=== PATIENT | male | born 2000 | race Caucasian/White ===

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

== ENCOUNTER 2018-01-25 17:59 | Emergency (ER) | payer OTHER ==
[2018-01-25 19:20] VITALS: BP 119/70
[2018-01-25] MEDS ORDERED: Ibuprofen ADULT LIQ* 600 MG/30 ML UDC PO ONE (20:41)
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
== END 2018-01-25 20:55 | disposition home or self-care (01) ==
LOC: UCCORT 17:59
DX: M62.838 Other muscle spasm (principal); L55.9 Sunburn, unspecified
CPT/HCPCS: 99212; A9270-GY; G0463

== ENCOUNTER 2018-10-06 19:59 | Emergency (ER) | payer OTHER ==
[2018-10-06 20:41] VITALS: BP 125/76
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
== END 2018-10-06 21:12 | disposition home or self-care (01) ==
LOC: UCCORT 19:59
DX: J03.90 Acute tonsillitis, unspecified (principal)
CPT/HCPCS: 87651; 99212; G0463

== ENCOUNTER 2018-11-01 18:26 | Emergency (ER) | payer OTHER ==
[2018-11-01 19:34] VITALS: BP 119/76
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
[2018-11-01] MEDS ORDERED: Amoxicillin/Clavulanate TAB* 875 MG PO ONE (20:34)
== END 2018-11-01 20:37 | disposition home or self-care (01) ==
LOC: UCCORT 18:26
DX: J32.9 Chronic sinusitis, unspecified (principal)
CPT/HCPCS: 99212; A9270-GY; G0463